=== PATIENT | male | born 1955 | race Caucasian/White ===

== ENCOUNTER 2018-10-04 11:02 | Outpatient (CLI) | payer OTHER ==
--- NOTE | 2018-10-04 14:26 | CT ---
CT OF ABDOMEN AND PELVIS PERFORMED WITH AND WITHOUT CONTRAST ENHANCEMENT: HISTORY: Gross hematuria. The lung bases show severe interstitial fibrotic lung changes. No pulmonary nodules are identified. The liver, spleen, and pancreas regions appear unremarkable. Gallstones are present. Right and left adrenal glands are normal in size and appearance. There is a 2.2 cm hypodense lesion involving the anterior cortex of the left kidney. It does not show enhancement and has CT Hounsfield unit numbers compatible with a cyst. There is a second smaller subcentimeter hypodensity also withi n the left kidney statistically most likely a small cyst. A third hypodense lesion involves the lowe r pole of the right kidney also with features of a cyst. It measures approximately 10-11 mm. There is no significant periaortic or mesenteric adenopathy. CT OF PELVIS PERFORMED WITH AND WITHOUT CONTRAST ENHANCEMENT: The prostate is markedly enlarged. There is diffuse bladder wall thickening associated with this. T here is no significant pelvic lymphadenopathy. No free fluid. Review of osseous structures shows some arthritic changes of the spine. IMPRESSION: 1. Hypodense lesions involving both kidneys most compatible with cysts. No renal calculi. 2. Markedly enlarged prostate with some mild diffuse bladder wall thickening. POS: TPC
[2018-10-04] MEDS ORDERED: ISOVUE-370 76%-LOCM 1 ML ONE (16:29)
== END 2018-10-04 11:03 | disposition home or self-care (01) ==
LOC: BICCT 11:02
PROVIDERS: ATTEND Urology
DX: R31.0 Gross hematuria (principal); N28.89 Other specified disorders of kidney and ureter; N40.0 Benign prostatic hyperplasia without lower urinary tract symptoms; N32.9 Bladder disorder, unspecified
CPT/HCPCS: 74178; Q9966

== ENCOUNTER 2019-04-12 13:51 | Outpatient (CLI) | payer MEDICARE ==
--- NOTE | 2019-04-13 14:35 | ULT ---
LOWER EXTREMITY ARTERIAL EVALUATION Examination of the right leg reveals fairly well preserved Doppler waveforms at all levels with an An kle-arm index of 1.1 and a toe-brachial index that was normal. Left lower extremity similarly reveals fairly well preserved Doppler waveforms at all levels with an Ankle-arm index of 1.0 and a preserved toe-brachial index. ASSESSMENT: This would be considered a normal resting arterial study of the lower extremities. If vascular claudi cation is a consideration, further evaluation could be undertaken.
== END 2019-04-12 13:52 | disposition home or self-care (01) ==
LOC: ULT 13:51
PROVIDERS: ATTEND Family Medicine
DX: I73.9 Peripheral vascular disease, unspecified (principal)
CPT/HCPCS: 36415; 80053; 82306; 83036; 85025; 93922

== ENCOUNTER 2019-05-05 09:27 | Outpatient (CLI) | payer MEDICARE ==
[2019-05-05] MEDS ORDERED: ISOVUE-370 76%-LOCM 1 ML ONE (14:53)
--- NOTE | 2019-05-05 16:55 | CT ---
CT ANGIOGRAM ABDOMEN AND PELVIS WITH IV CONTRAST AND 3D RECONSTRUCTIONS: CT ANGIOGRAM BILATERAL LOWER EXTREMITIES WITH RUNOFF TO THE FEET WITH IV CONTRAST AND 3D RECONSTRUCTI ONS: 05/05/19 HISTORY: Peripheral vascular disease, claudication right lower extremity, nicotine dependence and history of d iabetes mellitus. Right lower extremity pain when walking or standing. COMPARISON: CT abdomen and pelvis on 10/04/18. FINDINGS: Emphysematous changes as well as chronic lung changes are seen at each lung base with multiple calcif ied granulomata present. There are a few tiny subcentimeter too small to characterize hypodense lesions at the peripheral aspe ct of the medial and lateral segments of the left hepatic lobe as well as involving the right hepatic lobe. These low density lesions are too small to characterize but stable when compared to the prior exam. Gallbladder calculus is again seen. Inferior pole left renal cyst with subcentimeter too small to characterize hypodense lesions are agai n noted in each kidney. The spleen, pancreas, bilateral adrenal glands, and urinary bladder demonstrate normal CT appearance. There is mild mass effect on the posterior inferior aspect of the urinary bladder secondary to an en larged prostate gland measuring 6.2 cm in transverse dimensions. There is colonic diverticulosis present. The appendix is normal in caliber. The abdominal aorta is normal in caliber. Vascular calcifications are seen in the abdominal aorta and involving the iliac arteries. The celiac and superior mesenteric arteries are patent. There is mild narrowing at the origin of the KIMBERLY, but the KIMBERLY is otherwise patent. Mild atherosclerotic plaque is s een involving the iliac arteries with mild narrowing involving the proximal internal iliac arteries b ilaterally. The bilateral common iliac arteries as well as bilateral external iliac arteries are bensno nt. No other interval change from prior CT abdomen and pelvis. CT ANGIOGRAM BILATERAL LOWER EXTREMITIES: RIGHT LOWER EXTREMITY: There is calcified atherosclerotic plaque involving the posterior aspect of the right common femoral artery with minimal degree of narrowing. There is mild narrowing at the origin of the right lower ext remity superficial femoral artery which is otherwise patent. The profunda femoral artery on the right is patent. The popliteal artery is patent. The right anterior tibial artery occludes proximally. The re is mild atherosclerotic plaque involving the posterior tibial and peroneal arteries which are othe rwise patent to the level of the ankle and foot. There is reconstitution of the anterior tibial arter y at the level of the distal calf. LEFT LOWER EXTREMITY: The left common femoral artery is patent with minimal atherosclerotic plaque involving the distal lef t common femoral artery. The profunda femoral artery is patent. Mild atherosclerotic plaque is seen i nvolving the mid and distal left superficial femoral artery. Mild narrowing is present at the level o f the adductor canal. Popliteal artery is patent. The left anterior tibial artery occludes in the pro ximal calf. Two vessel runoff to the left lower extremity via the peroneal and posterior tibial arter ies is present. IMPRESSION: 1. Mild atherosclerotic vascular disease. There is occlusion of the anterior tibial arteries francisco aterally in the proximal calf with essentially two vessel runoff to the lower extremities bilaterally via the peroneal and posterior tibial arteries with mild atherosclerotic plaque present in each post erior tibial artery. There is reconstitution of the right anterior tibial artery at the level of the distal calf with the dorsalis pedis artery on the right seen in the foot. 2. Mild atherosclerotic plaque involving the abdominal aorta and iliac arteries. 3. Cholelithiasis. 4. Subcentimeter too small to characterize hypodense lesions in each kidney with inferior pole l eft renal cyst. 5. Tiny subcentimeter hypodense lesions in each lobe of the liver. 6. Colonic diverticulosis. 7. Marked enlargement of the prostate gland also noted on prior exam. POS: JACK
== END 2019-05-05 09:28 | disposition home or self-care (01) ==
LOC: BICCT 09:27
PROVIDERS: ATTEND Family Medicine
DX: I12.9 Hypertensive chronic kidney disease with stage 1 through stage 4 chronic kidney disease, or unspecified chronic kidney disease (principal); N18.3 Chronic kidney disease, stage 3 (moderate); E78.5 Hyperlipidemia, unspecified; E11.42 Type 2 diabetes mellitus with diabetic polyneuropathy; F17.200 Nicotine dependence, unspecified, uncomplicated; E11.51 Type 2 diabetes mellitus with diabetic peripheral angiopathy without gangrene; K80.20 Calculus of gallbladder without cholecystitis without obstruction; K57.30 Diverticulosis of large intestine without perforation or abscess without bleeding; N40.0 Benign prostatic hyperplasia without lower urinary tract symptoms
CPT/HCPCS: 75635; Q9966

== ENCOUNTER 2019-10-10 09:43 | Day surgery (SDC) | payer MEDICARE ==
[2019-10-07 09:44] VITALS: BMI 25.0
[2019-10-10] MEDS ORDERED: PROPOFOL 20 ML ONE (12:00)
[2019-10-10 12:49] LABS: Prothrombin Time 13.5 SEC (12.0-14.7)
[2019-10-10 12:50] LABS: PTT 33.7 SEC (22.9-36.1)
--- NOTE | 2019-10-11 11:38 | EKG ---
Test Reason : PRE-MARILUZ Blood Pressure : / mmHG Vent. Rate : 086 BPM Atrial Rate : 086 BPM P-R Int : 156 ms QRS Dur : 088 ms QT Int : 412 ms P-R-T Axes : 005 003 065 degrees QTc Int : 493 ms Sinus rhythm with Fusion complexes Possible Left atrial enlargement Possible Inferior infarct , age undetermined Anteroseptal infarct , age undetermined Abnormal ECG No previous ECGs available Confirmed by LETHA CARDOZO, DR. Su ([id number]) on 10/11/2019 11:38:19 AM Referred By: JEFFERY Confirmed By:DR. Sharlene MONAE MD
--- NOTE | 2019-10-11 13:00 | OP ---
DATE OF PROCEDURE: 10/10/2019 PROCEDURE PERFORMED: Transesophageal echocardiogram. INDICATION: A 64-year-old gentleman with coronary artery disease and mitral valve disease. DESCRIPTION OF PROCEDURE: The patient was taken to the PACU. The patient was sedated by Anesthesiology. A transesophageal probe was placed into the distal esophagus and stomach. Echocardiographic images were obtained. The transesophageal probe was removed. FINDINGS: 1. Mild decrease in left ventricular systolic function. 2. Normal aortic and mitral valves. 3. Moderate mitral regurgitation. 4. Mild tricuspid regurgitation. 5. Moderate mitral annular calcification. IMPRESSION: Moderate mitral annular calcification with no intracardiac mass noted. Job ID: [id number] MTDD
== END 2019-10-10 13:43 | disposition home or self-care (01) ==
LOC: CCL 09:43
PROVIDERS: ATTEND Internal Medicine Cardiovascular Disease
PROC: B24BZZ4 Ultrasonography of Heart with Aorta, Transesophageal (ICD-10-PCS; principal; 2019-10-10)
DX: I08.1 Rheumatic disorders of both mitral and tricuspid valves (principal); I25.10 Atherosclerotic heart disease of native coronary artery without angina pectoris; I25.5 Ischemic cardiomyopathy; E11.9 Type 2 diabetes mellitus without complications; E78.5 Hyperlipidemia, unspecified; I25.2 Old myocardial infarction; F17.210 Nicotine dependence, cigarettes, uncomplicated; Z79.84 Long term (current) use of oral hypoglycemic drugs; Z79.899 Other long term (current) drug therapy; Z95.5 Presence of coronary angioplasty implant and graft
CPT/HCPCS: 36415; 85610; 85730; 93005; 93010; 93312; J2704

== ENCOUNTER 2020-02-16 13:45 | Outpatient (CLI) | payer MEDICARE ==
--- NOTE | 2020-02-16 14:36 | CT ---
LOW DOSE CT SCAN OF THE CHEST WITHOUT IV CONTRAST FOR LUNG CANCER SCREENIN02/16/20 HISTORY: Current smoker who smoked one pack a day for 40 years. FINDINGS: There are multiple calcified lung nodules bilaterally. No suspicious lung nodules are seen. There is evidence of diffuse interstitial lung disease. No lobar consolidation, pleural or pericardial effusio ns identified. No pneumothoraces are seen. There are vascular calcifications without evidence of aneurysmal dilatation of the thoracic aorta. Th ere are degenerative changes in the spine. IMPRESSION: LUNG RADS 2: Negative with benign pulmonary finding(s) RECOMMENDATION: Continue annual screening with LDCT in 12 months. POS: OFF
== END 2020-02-16 13:46 | disposition home or self-care (01) ==
LOC: BICCT 13:45
PROVIDERS: ATTEND Family Medicine
DX: Z12.2 Encounter for screening for malignant neoplasm of respiratory organs (principal); F17.210 Nicotine dependence, cigarettes, uncomplicated
CPT/HCPCS: G0297

== ENCOUNTER 2021-02-28 14:32 | Inpatient (IN) | payer MEDICARE ==
[2021-02-28] MEDS ORDERED: Iopamidol-370 76% 500 ML 1 ML ONE (14:54)
[2021-02-28 15:19] LABS: #Basophils 0.1 thou/uL (0.0-0.2); #Eosinphils 0.3 thou/uL (0.0-0.7); #Lymphocytes 2.2 thou/uL (1.20-3.40); #Monocytes 0.8 thou/uL (0.11-0.59); #Neutrophils 4.8 thou/uL (1.40-6.50); %Basophils 0.7 % (0.0-1.0); %Eosinophils 3.9 % (0.0-10.0); %Lymphocytes 27.1 % (21.0-51.0); %Monocytes 10.2 % (0.0-10.0); %Neutrophils 58.1 % (42.0-75.0); Hemoglobin 15.9 g/dL (14.0-18.0); Mean Corpuscular HGB CONC 32.7 g/dL (32.0-36.0); Mean Corpuscular Hemoglobin 29.7 pg (27.0-31.0); Mean Corpuscular Volume 90.7 fL (78.0-98.0); Mean Platelet Volume 7.3 fL (7.4-10.4); Platelet Count 350 thou/uL (130-400); RBC Distribution Width 13.7 % (11.5-14.5); Red Blood Cell (RBC) Count 5.37 mill/uL (4.70-6.10); White Blood Cell (WBC) Count 8.2 thou/uL (4.8-10.8)
[2021-02-28 15:40] LABS: ALT (SGPT) 18 U/L (8-55); AST (SGOT) 17 U/L (5-34); Albumin 3.9 g/dL (3.4-4.8); Alkaline Phosphatase 134 U/L (40-110); Anion Gap 10 mmol/L (10-20); BUN (Urea Nitrogen) 9 mg/dL (8.4-25.7); Bilirubin, Total 1.5 mg/dL (0.2-1.2); Calc. Creatinine Clearance 0 mL/min (70-130); Calcium 9.2 mg/dL (7.8-10.44); Carbon Dioxide 28 mmol/L (23-31); Chloride 104 mmol/L (98-107); Globulin 2.7 g/dL (2.4-3.5); Glucose 147 mg/dL (80-115); Potassium 3.6 mmol/L (3.5-5.1); Protein, Total 6.6 g/dL (5.8-8.1); Sodium 138 mmol/L (136-145)
[2021-02-28 16:02] LABS: CKMB 2.1 ng/mL (0-6.6)
[2021-02-28] MEDS ORDERED: Dexamethasone 10 MG/ML VIAL ONE (17:19)
[2021-02-28 17:57] LABS: SARS-CoV-2 NAA Rapid Test DETECTED (NotDetected)
[2021-02-28 19:09] LABS: Troponin I 0.057 ng/mL (< 0.028)
[2021-02-28] MEDS ORDERED: Ondansetron PF 4 MG/2 ML Vial IVP PRN (20:55)
[2021-02-28] MEDS ORDERED: Acetaminophen 325 MG TAB PO PRN (20:55)
[2021-02-28] MEDS ORDERED: Ondansetron ODT 4 MG TAB PO PRN (20:55)
[2021-02-28] MEDS ORDERED: Acetaminophen 650 MG Suppository PR PRN (20:55)
[2021-02-28 20:57] VITALS: BMI 23.5
[2021-02-28] MEDS ORDERED: Benzonatate 100 MG CAP PO PRN (20:59)
[2021-02-28] MEDS ORDERED: Dextrose 50% Abboject 50 ML SYRINGE SLOW IVP PRN (21:07)
[2021-02-28] MEDS ORDERED: HumaLOG 300 UNITS/3 ML VIAL SC PRN (21:07)
[2021-02-28] MEDS ORDERED: Dextrose 5% in Water 1,000 ML IV PRN (21:07)
[2021-02-28 21:58] LABS: Troponin I 0.051 ng/mL (< 0.028)
[2021-02-28] MEDS: Enoxaparin Sodium 40 MG/0.4 ML SYRINGE SC SCH (22:28)
[2021-03-01 05:19] LABS: #Lymphocytes 1.2 thou/uL (1.20-3.40); #Monocytes 0.1 thou/uL (0.11-0.59); #Neutrophils 3.6 thou/uL (1.40-6.50); %Basophils 0.2 % (0.0-1.0); %Eosinophils 0.3 % (0.0-10.0); %Lymphocytes 23.7 % (21.0-51.0); %Monocytes 2.8 % (0.0-10.0); %Neutrophils 73.1 % (42.0-75.0); Hemoglobin 15.9 g/dL (14.0-18.0); Mean Corpuscular HGB CONC 33.2 g/dL (32.0-36.0); Mean Corpuscular Hemoglobin 30.1 pg (27.0-31.0); Mean Corpuscular Volume 90.8 fL (78.0-98.0); Mean Platelet Volume 7.5 fL (7.4-10.4); Platelet Count 355 thou/uL (130-400); RBC Distribution Width 13.7 % (11.5-14.5); Red Blood Cell (RBC) Count 5.27 mill/uL (4.70-6.10); White Blood Cell (WBC) Count 4.9 thou/uL (4.8-10.8)
[2021-03-01 05:43] LABS: Anion Gap 12 mmol/L (10-20); BUN (Urea Nitrogen) 11 mg/dL (8.4-25.7); Calc. Creatinine Clearance 60 mL/min (70-130); Calcium 9.1 mg/dL (7.8-10.44); Carbon Dioxide 24 mmol/L (23-31); Chloride 103 mmol/L (98-107); Glucose 148 mg/dL (80-115); Potassium 3.9 mmol/L (3.5-5.1); Sodium 135 mmol/L (136-145)
[2021-03-01] MEDS: Ascorbic Acid 500 mg Chewable Tablet PO SCH (08:57)
[2021-03-01] MEDS: Cholecalciferol (Vitamin D3) 400 UNITS TAB PO SCH (08:57)
[2021-03-01] MEDS: Enoxaparin Sodium 40 MG/0.4 ML SYRINGE SC SCH ×2 (08:57→20:48)
[2021-03-01] MEDS: HumaLOG 300 UNITS/3 ML VIAL SC PRN (15:31)
[2021-03-02] MEDS: Enoxaparin Sodium 40 MG/0.4 ML SYRINGE SC SCH (08:34)
[2021-03-02] MEDS: Cholecalciferol (Vitamin D3) 400 UNITS TAB PO SCH (08:34)
[2021-03-02] MEDS: Ascorbic Acid 500 mg Chewable Tablet PO SCH (08:34)
[2021-03-02] MEDS ORDERED: Dexamethasone 10 MG in Sodium Chloride 0.9% 50 ML IVPB SCH (09:00)
[2021-03-02] MEDS: HumaLOG 300 UNITS/3 ML VIAL SC PRN (12:08)
[2021-03-02 15:07] VITALS: BP 144/91; TEMP 98
== END 2021-03-02 15:53 | disposition home or self-care (01) | DRG 177 ==
LOC: ERS 14:32 → 2SW 18:45
PROVIDERS: ADMIT Internal Medicine; ATTEND Internal Medicine
PROC: 8E0ZXY6 Isolation (ICD-10-PCS; principal; 2021-02-28)
DX: U07.1 COVID-19 (principal); J12.82 Pneumonia due to coronavirus disease 2019; J96.01 Acute respiratory failure with hypoxia; E11.9 Type 2 diabetes mellitus without complications; E78.5 Hyperlipidemia, unspecified; I25.10 Atherosclerotic heart disease of native coronary artery without angina pectoris; F17.210 Nicotine dependence, cigarettes, uncomplicated; I10 Essential (primary) hypertension; Z28.21 Immunization not carried out because of patient refusal; Z95.5 Presence of coronary angioplasty implant and graft; Z79.899 Other long term (current) drug therapy; Z79.82 Long term (current) use of aspirin; Z79.84 Long term (current) use of oral hypoglycemic drugs; Z98.890 Other specified postprocedural states
CPT/HCPCS: 0240U; 36415; 36416; 71045; 71275; 80048; 80053; 82553; 82728; 83735; 83880; 84484; 85025; 85379; 86140; 87040; 93005; 96365; 96375; J1100; J1650; J1815; J1956; J7620; Q9967

== ENCOUNTER 2021-08-22 09:54 | Outpatient (CLI) | payer MEDICARE | END 2021-08-22 09:55 | disposition home or self-care (01) | LOC: TBSIIMAG 09:54 | PROVIDERS: ATTEND Urology | DX: R97.20 Elevated prostate specific antigen [PSA] (principal) | CPT/HCPCS: 72197 ==

== ENCOUNTER 2021-12-25 11:01 | Inpatient (IN) | payer MEDICARE ==
[2021-12-25 11:36] LABS: #Basophils 0.1 thou/uL (0.0-0.2); #Eosinphils 0.3 thou/uL (0.0-0.7); #Lymphocytes 1.7 thou/uL (1.20-3.40); #Monocytes 0.9 thou/uL (0.11-0.59); %Basophils 0.6 % (0.0-1.0); %Eosinophils 3.2 % (0.0-10.0); %Lymphocytes 15.1 % (21.0-51.0); %Monocytes 7.8 % (0.0-10.0); %Neutrophils 73.3 % (42.0-75.0); Hemoglobin 16.5 g/dL (14.0-18.0); Mean Corpuscular HGB CONC 31.6 g/dL (32.0-36.0); Mean Corpuscular Hemoglobin 29.4 pg (27.0-31.0); Mean Platelet Volume 7.4 fL (7.4-10.4); Platelet Count 276 thou/uL (130-400); RBC Distribution Width 15.2 % (11.5-14.5); White Blood Cell (WBC) Count 10.9 thou/uL (4.8-10.8)
[2021-12-25 12:02] LABS: ALT (SGPT) 13 U/L (8-55); AST (SGOT) 13 U/L (5-34); Alkaline Phosphatase 124 U/L (40-110); Anion Gap 13 mmol/L (10-20); BUN (Urea Nitrogen) 9 mg/dL (8.4-25.7); Bilirubin, Total 0.9 mg/dL (0.2-1.2); Calc. Creatinine Clearance 0 mL/min (70-130); Calcium 9.5 mg/dL (7.8-10.44); Carbon Dioxide 23 mmol/L (23-31); Chloride 105 mmol/L (98-107); Globulin 2.9 g/dL (2.4-3.5); Glucose 249 mg/dL (80-115); Potassium 4.1 mmol/L (3.5-5.1); Protein, Total 6.9 g/dL (5.8-8.1); Sodium 137 mmol/L (136-145)
[2021-12-25] MEDS ORDERED: Acetaminophen 325 MG TAB PO PRN (14:12)
[2021-12-25] MEDS ORDERED: Ondansetron ODT 4 MG TAB PO PRN (14:12)
[2021-12-25] MEDS ORDERED: Ondansetron PF 4 MG/2 ML Vial IVP PRN (14:12)
[2021-12-25] MEDS ORDERED: Nicotine 14 MG PATCH TD SCH (14:15)
[2021-12-25] MEDS ORDERED: Furosemide 20 MG TAB PO SCH (14:45)
[2021-12-25] MEDS ORDERED: Nicotine 14 MG PATCH ONE (14:56)
[2021-12-25] MEDS ORDERED: Dextrose 50% Abboject 50 ML SYRINGE SLOW IVP PRN (14:57)
[2021-12-25] MEDS ORDERED: HumaLOG 300 UNITS/3 ML VIAL SC PRN ×2 (14:57)
[2021-12-25] MEDS ORDERED: Dextrose 5% in Water 1,000 ML IV PRN (14:57)
[2021-12-25 16:20] VITALS: BMI 24.5
[2021-12-25] MEDS ORDERED: Carvedilol 6.25 MG TAB PO SCH (17:00)
[2021-12-25] MEDS ORDERED: Icosapent Ethyl 1 GM CAPSULE PO SCH (21:00)
[2021-12-25] MEDS ORDERED: Atorvastatin Calcium 40 MG TAB PO SCH (21:00)
[2021-12-25] MEDS ORDERED: Tamsulosin HCl 0.4 MG CAP PO SCH (21:00)
[2021-12-26 04:46] LABS: #Basophils 0.1 thou/uL (0.0-0.2); #Eosinphils 0.4 thou/uL (0.0-0.7); #Lymphocytes 2.1 thou/uL (1.20-3.40); #Monocytes 1.2 thou/uL (0.11-0.59); #Neutrophils 6.8 thou/uL (1.40-6.50); %Basophils 0.9 % (0.0-1.0); %Eosinophils 3.5 % (0.0-10.0); %Lymphocytes 19.6 % (21.0-51.0); %Monocytes 11.2 % (0.0-10.0); %Neutrophils 64.9 % (42.0-75.0); Hemoglobin 15.4 g/dL (14.0-18.0); Mean Corpuscular HGB CONC 32.9 g/dL (32.0-36.0); Mean Corpuscular Hemoglobin 30.3 pg (27.0-31.0); Mean Corpuscular Volume 91.9 fL (78.0-98.0); Mean Platelet Volume 7.5 fL (7.4-10.4); Platelet Count 257 thou/uL (130-400); RBC Distribution Width 15.1 % (11.5-14.5); Red Blood Cell (RBC) Count 5.08 mill/uL (4.70-6.10); White Blood Cell (WBC) Count 10.5 thou/uL (4.8-10.8)
[2021-12-26 05:14] LABS: Anion Gap 12 mmol/L (10-20); BUN (Urea Nitrogen) 9 mg/dL (8.4-25.7); Calc. Creatinine Clearance 50 mL/min (70-130); Calcium 8.8 mg/dL (7.8-10.44); Carbon Dioxide 21 mmol/L (23-31); Cardiac Risk 3.5 (Less than 4.5); Chloride 110 mmol/L (98-107); Cholesterol 76 mg/dl (< 200 Desired); Glucose 154 mg/dL (80-115); HDL Cholesterol 22 mg/dL (>60 Neg Risk); LDL Cholesterol, Calculated 37 mg/dL; Potassium 3.3 mmol/L (3.5-5.1); Sodium 140 mmol/L (136-145); Triglycerides 83 mg/dL (Less than 150)
[2021-12-26] MEDS ORDERED: Non-Formulary Item 1 EACH (Fluticasone/Umeclidin/Vilanter [Trelegy Ellipta 200-62.5-25] 1 INH SCH (09:00)
[2021-12-26] MEDS ORDERED: Tamsulosin HCl 0.4 MG CAP PO SCH (09:00)
[2021-12-26] MEDS ORDERED: Gabapentin 400 MG CAP PO SCH (09:00)
[2021-12-26] MEDS ORDERED: Lisinopril 10 MG TAB PO SCH (09:00)
[2021-12-26] MEDS ORDERED: Empagliflozin 10 MG TAB PO SCH (09:00)
[2021-12-26] MEDS ORDERED: Carvedilol 6.25 MG TAB PO SCH (09:00)
[2021-12-26] MEDS ORDERED: Icosapent Ethyl 1 GM CAPSULE PO SCH (09:00)
[2021-12-26] MEDS ORDERED: Furosemide 20 MG TAB PO SCH (09:00)
[2021-12-26] MEDS ORDERED: Aspirin 325 MG TAB PO SCH (09:00)
[2021-12-26 12:59] VITALS: TEMP 97.9
[2021-12-26 13:22] VITALS: BP 132/78
[2021-12-26] MEDS ORDERED: Mometasone 100 MCG/PUFF (1 INHALER) INH SCH (18:30)
[2021-12-26] MEDS ORDERED: Atorvastatin Calcium 40 MG TAB PO SCH (21:00)
== END 2021-12-26 13:17 | disposition short-term general hospital (02) | DRG 315 ==
LOC: ERS 11:01 → ERHOLD 13:22 → 2SW 15:52 → OBSVTOIN 16:31
PROVIDERS: ADMIT Hospitalist; ATTEND Hospitalist
DX: I27.20 Pulmonary hypertension, unspecified (principal); N17.9 Acute kidney failure, unspecified; I50.22 Chronic systolic (congestive) heart failure; I25.10 Atherosclerotic heart disease of native coronary artery without angina pectoris; Z20.822 Contact with and (suspected) exposure to COVID-19; F17.210 Nicotine dependence, cigarettes, uncomplicated; J84.10 Pulmonary fibrosis, unspecified; I25.5 Ischemic cardiomyopathy; E11.9 Type 2 diabetes mellitus without complications; N40.0 Benign prostatic hyperplasia without lower urinary tract symptoms; J44.9 Chronic obstructive pulmonary disease, unspecified; I11.0 Hypertensive heart disease with heart failure; E78.5 Hyperlipidemia, unspecified; Z79.899 Other long term (current) drug therapy; Z95.5 Presence of coronary angioplasty implant and graft; Z79.84 Long term (current) use of oral hypoglycemic drugs; Z79.82 Long term (current) use of aspirin; Z79.51 Long term (current) use of inhaled steroids; I25.2 Old myocardial infarction; Z98.890 Other specified postprocedural states; Z82.49 Family history of ischemic heart disease and other diseases of the circulatory system; Z71.6 Tobacco abuse counseling; Z85.46 Personal history of malignant neoplasm of prostate; Z86.16 Personal history of COVID-19; Z87.01 Personal history of pneumonia (recurrent)
CPT/HCPCS: 36415; 36416; 71046; 80048; 80053; 80061; 83735; 83880; 84484; 85025; 93005; 93798; G0378; U0003; U0005